=== PATIENT | male | born 1960 | race Caucasian/White ===

== ENCOUNTER 2023-05-23 09:12 | Outpatient (REF) | payer OTHER, SELFPAY | END 2023-05-23 09:13 | disposition home or self-care (01) | LOC: HO.XRAY 09:12 | PROVIDERS: Visit Provider Registered Nurse Emergency | DX: M47.816 Spondylosis without myelopathy or radiculopathy, lumbar region (principal); M54.50 Low back pain, unspecified | CPT/HCPCS: 72110; 99202 ==

== ENCOUNTER 2023-05-23 09:12 | Outpatient (AMB) | payer OTHER, SELFPAY ==
[2023-05-23 09:20] VITALS: BP 128/74; PULSE 78; RESP 16; O2SAT 98; BMI 26.4
--- NOTE | 2023-05-23 09:20 | MHC.OFFVIS ---
Intake Vital Signs 05/23/23 09:20 Height 5 ft 5 in Weight 158 lb 8 oz BMI 26.4 BP 128/74 Blood Pressure Location Lt brachial Position Sitting Respiration 16 Pulse 78 Pulse Source Pulse Oximeter Pulse Oximetry (%) 98 Oxygen Delivery Method Room Air Intake Visit Reasons: Right Arm & Back Pain Allergies morphine Adverse Reaction (Intermediate, Uncoded 05/23/23 09:18) Rash HPI HPI Comments History of Present Illness Details Xiang is a very pleasant 62-year-old male who presented to the office today for evaluation management of his lower back pain. Patient reports that he has been suffering with this pain for approximately 15 years, he denies known injury to his back. He has never had a surgery on his back. Patient endorses right lower back pain without radiation, worse with palpation and movement. Patient states that he has never attempted physical therapy for his pain, he had been doing chiropractor at least 10 years ago with some improvement, he has never tried acupuncture or massage. Patient had injections at least 7-10 years ago for his lower back but then was lost to follow-up. Patient's most recent imaging was approximately 5 years ago. Patient is taking nonsteroidal anti-inflammatory medications which is helping some, he is also currently on chronic opioid therapy prescribed by his primary care doctor. Patient denies red flag symptoms including new loss of bowel, bladder or saddle anesthesia. Pain today is rated as an 8/10, constant throughout the day. Injury in terms of muscle damage condition is described as shooting, stabbing and sharp. Pain is negatively impacting patient's enjoyment life, general activity, mood, normal work, recreational activities, sleep and walking. Patient also reports that he has chronic right shoulder pain, he is scheduled for shoulder replacement surgery in 1 month with [facility]. Review of Systems Const All systems reviewed & are unremarkable except as noted in HPI and below Physical Exam Vital Signs: Last Vital Signs Pulse 78 05/23/23 09:20 Resp 16 05/23/23 09:20 BP 128/74 05/23/23 09:20 Pulse Ox 98 05/23/23 09:20 Oxygen Delivery Method Room Air 05/23/23 09:20 BMI result Body Mass Index 26.4 General: awake, alert, oriented. Answers questions appropriately. Fully engaged in examination. Skin: warm, dry, intact HEENT: Normocephalic. Hearing intact. Cardiac: External chest normal in appearance. Respiratory: No cough, audible wheezing or stridor. Abdomen: without gross distension. MS: No obvious swelling or deformities. Able to stand on bilateral tiptoes and bilateral heels.? Able to transition from sit to stand unassisted. Ambulates with bilaterally normal heel strike and toe off Full lumbar ROM Facet loading positive Tender to palpation right lower back, minimally tender over midline lumbar vertebrae SLR negative bilaterally Neurological: Oriented to person, place, time and situation. Thought process intact. No gait abnormalities appreciated. Psychiatric: Appropriate mood and affect. Good judgment and insight. Assessment & Plan Assessment & Plan (1) Lumbar facet arthropathy: Code(s): M47.816 - Spondylosis without myelopathy or radiculopathy, lumbar region (2) Lumbar spondylosis: Code(s): M47.816 - Spondylosis without myelopathy or radiculopathy, lumbar region (3) Myofascial low back pain: Code(s): M54.50 - Low back pain, unspecified Plan Patient is a very pleasant 62-year-old male who presented to the office today for evaluation management of his chronic lower back pain. Order placed for physical therapy evaluate and treat. Patient requests to take the ordered to a office in [facility] that is closer to his home. XR LS ordered for evaluation, patient reports he has not had any imaging done in over 5 years. Again 5% patches apply to most painful area, on for 12 hours off for 12 hours. Methocarbamol 500 mg p.o. b.i.d., patient advised on cautions for use including do not take with other [employer] depressants or his prescribed oxycodone medication. Discussed options for treatment including diagnostic interventional testing, epidural steroid injections, peripheral nerve stimulation with Sprint, RFA and more permanent neuromodulation. Patient is scheduled for right shoulder replacement in 1 month, he was advised that we would not be able to proceed with injections until after he is recovered from his shoulder surgery and would be able to be positioned on the procedure table prone with arms by his side or over his head. Patient verbalized understanding. In the meantime he will continue with conservative treatment to see if this offer some improvement in his symptoms. All questions and concerns have been answered and patient agrees with the plan. Follow up after shoulder replacement surgery, sooner if needed. Orders: Orders PT Evaluation and Treatment Today M47.816 - Spondylosis without myelopathy or radiculopathy, lumbar region, M54.50 - Low back pain, unspecified XR lumbar spine 4V min Today M47.816 - Spondylosis without myelopathy or radiculopathy, lumbar region, M54.50 - Low back pain, unspecified Medications: New lidocaine 5% leave on most painful area for up to 12 hrs 1 patch topical DAILY 30 ea 1RF methocarbamol do not drink alcohol while taking this medication. Do not take with other [employer] depressants. Do not take with opioid medications. 500 mg PO BID PRN 30 tabs 0RF muscle spasm Coding Level of Care Code New Pt Level 4 (35818) Diagnoses Lumbar facet arthropathy M47.816 Lumbar spondylosis M47.816 Myofascial low back pain M54.50
== END 2023-05-23 09:55 | disposition home or self-care (01) ==
PROVIDERS: Visit Provider Registered Nurse Emergency
DX: M47.816 Spondylosis without myelopathy or radiculopathy, lumbar region (principal); M54.50 Low back pain, unspecified
CPT/HCPCS: 99204